=== PATIENT | female | born 1955 | race Caucasian/White ===

== ENCOUNTER 2016-08-22 05:59 | Emergency (ER) | payer MEDICAID ==
[~2016-08-22] VITALS: Ht 165.1 cm; Wt 74.2 kg
[~2016-08-22 05:59] MED LIST: CLIN300C93 PO; OXYC1TAB7 PO
[2016-08-22] MEDS ORDERED: GABAPENTIN 300 MG CAPSULE PO ONE (07:00)
[2016-08-22] MEDS ORDERED: ONDANSETRON ODT 4 MG PO ONE (07:00)
[2016-08-22] MEDS ORDERED: LORazepam 1MG TABLET PO ONE (07:00)
[2016-08-22 07:48] LABS: DAU SCREEN DISCLAIMER
[2016-08-22] MEDS ORDERED: LORazepam 1MG TABLET ONE (07:49)
[2016-08-22] MEDS ORDERED: ONDANSETRON ODT 4 MG ONE (07:50)
[2016-08-22 08:34] LABS: ASPARTATE AMINO TRANSFERASE 79 U/L (15-37); BLOOD UREA NITROGEN 6 mg/dL (7-18)
[2016-08-22 10:54] VITALS: BP 117/53
== END 2016-08-22 10:59 | disposition home or self-care (01) ==
LOC: ED 07:22
DX: F10.10 Alcohol abuse, uncomplicated (principal); F11.10 Opioid abuse, uncomplicated; J44.9 Chronic obstructive pulmonary disease, unspecified; F19.10 Other psychoactive substance abuse, uncomplicated; Y90.9 Presence of alcohol in blood, level not specified
CPT/HCPCS: 36415; 71010; 80053; 80307; 81001; 84436; 84439; 84443; 85025; 87086; 93005; 99285; Q0162